=== PATIENT | female | born 1965 | race Caucasian/White ===

== ENCOUNTER 2018-04-25 09:59 | Outpatient (CLI) | payer OTHER | END 2018-04-25 10:27 | disposition home or self-care (01) | LOC: SONOGRAMA 09:59 | DX: E04.2 Nontoxic multinodular goiter (principal) ==

== ENCOUNTER 2020-12-20 09:29 | Outpatient (CLI) | payer OTHER | END 2020-12-20 09:40 | disposition home or self-care (01) | LOC: SONOGRAMA 09:29 | DX: E04.2 Nontoxic multinodular goiter (principal) ==

== ENCOUNTER 2021-02-24 10:45 | Outpatient (CLI) | payer OTHER | END 2021-02-24 10:52 | disposition home or self-care (01) | LOC: SONOGRAMA 10:45 | PROVIDERS: ATTEND Pathology Anatomic Pathology & Clinical Pathology | DX: E04.2 Nontoxic multinodular goiter (principal) ==

== ENCOUNTER 2024-06-09 15:02 | Outpatient (CLI) | payer OTHER | END 2024-06-09 15:07 | disposition home or self-care (01) | LOC: SONOGRAMA 15:02 | PROVIDERS: ATTEND Pathology Anatomic Pathology & Clinical Pathology | DX: E04.2 Nontoxic multinodular goiter (principal) ==